=== PATIENT | female | born 1950 ===

== ENCOUNTER 2018-03-07 12:47 | Emergency (ER) | payer OTHER ==
[~2018-03-07] VITALS: Ht 149.9 cm; Wt 41.3 kg
[2018-03-07] MEDS ORDERED: VITAMIN D400 UNI2 (13:07)
== END 2018-03-07 16:07 | disposition home or self-care (01) ==
LOC: ER 12:47
DX: S50.812A Abrasion of left forearm, initial encounter (principal); W45.8XXA Other foreign body or object entering through skin, initial encounter; Y93.89 Activity, other specified; Y92.038 Other place in apartment as the place of occurrence of the external cause; Y99.8 Other external cause status